=== PATIENT | female | born 1980 | race African-American/Black ===

== ENCOUNTER 2016-07-20 05:08 | Inpatient (IN) | payer OTHER ==
[~2016-07-20] VITALS: Ht 152.4 cm; Wt 76.2 kg
[~2016-07-20 05:08] MED LIST: FLEXERIL10 MG PO; HYDROCODONE/ACE1 TA1 PO; MOTRIN 600 MG600 MG PO; RA PRENATAL TA1 EACH PO; ZOFRAN ODT4 M1 PO
[2016-07-20 06:08] LABS: ABSOLUTE BASOPHIL COUNT 0.1 /CUMM (0.0-0.2); ABSOLUTE EOSINOPHIL COUNT 0.1 /CUMM (0.0-0.7); ABSOLUTE GRANULOCYTE CT 4.2 /CUMM (1.4-6.5); ABSOLUTE LYMPH COUNT 2.3 /CUMM (1.2-3.4); ABSOLUTE MONOCYTE COUNT 0.9 /CUMM (0.10-0.60); BASOPHIL % 1.5 % (0.0-2.0); EOSINOPHIL % 0.7 % (0-5); GRANULOCYTE % 56.1 % (42.2-75.2); HEMATOCRIT 39.1 % (37-47); MEAN CORPUSCULAR HGB 26.6 PG (27.0-31.0); MEAN CORPUSCULAR HGB CONC 32.2 G/DL (33.0-37.0); MEAN CORPUSCULAR VOLUME 82.4 FL (81.0-99.0); MEAN PLATELET VOLUME 11.4 FL (7.4-10.4); PLATELET COUNT 188 /CUMM (130-400); RED BLOOD CELL CT 4.75 /CUMM (4.20-5.40); WHITE BLOOD CELL COUNT 7.6 /CUMM (4.8-10.8)
[2016-07-20 06:20] VITALS: BP 136/81
--- NOTE | 2016-07-20 07:46 | History & Physical ---
General Information and HPI MD Statement: I have seen and personally examined DEMETRIUS SILVERIO and documented this H&P. The patient is a 35 year old female at 39[] weeks and 1[] days gestation who presented with a chief complaint of []. Previous section History of Present Illness: A3 6-year-old 3 para 1011 at 30 9/7 weeks gestation presents for repeat section. Patient has had adequate care. 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: 1 Last Menstrual Period: 10/31/2015 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: review section for CPD and oligo Medical History Neurological: NONE EENT: NONE Cardiovascular: NONE Respiratory: NONE Gastrointestinal: ABDOMINAL HERNIA Hepatic: NONE Renal: NONE Musculoskeletal: NONE Psychiatric: NONE Endocrine: NONE Blood Disorders: NONE Cancer(s): NONE 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: FALLOPIAN 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 Surgical History Pertinent Surgical History: , hernia repair-umbilical Past Family/Social History Psychosocial History Smoking Status: Never Smoked Review of Systems Review of Systems: -13 point review of systems as stated in the HPI Exam & Diagnostic Data Last 24 Hrs of Vital Signs/I&O Vital Signs Date Time Temp Pulse Resp B/P Pulse O2 O2 Flow FiO2 Ox Delivery Rate 07/20 0620 136/81 Intake & Output 07/20 0800 07/20 0000 07/19 1600 Intake Total Output Total Balance Patient 168 lb Weight Obstetric Exam Wgt Gained During : 22 Pelvimetry: Untested Dilation (cm): 0 Effacement (%): 0 Station: 0 Membranes: intact Fluid: unknown Fundal Height (cm): 37 Multiple Gestation? No Contractions: Non- Patient for Induction? No Labs Blood Type & Rh: Positiveo Antibody Screen: Negative Hct/Hgb & Platelets #1: Hct/Hgb & Platelets #2: Rubella: I VDRL #1: NR NR VDRL #2: NR HbsAg: NEG HIV #1: NEG HIV #2 NEG 1 Hr P Group B Strep: NEG Initial Ultrasound: NEG Anatomy Ultrasound: NL Genetic Testing: NEG Last 24 Hrs of Labs/[place]: Laboratory Tests 07/20/16 0520: CBC w Diff NO MAN DIFF REQ, RBC 4.75, MCV 82.4, MCH 26.6 L, RDW 16.0 H, MPV 11.4 H, Gran % 56.1, Lymphocytes % 30.4, Monocytes % 11.3 H, Eosinophils % 0.7 , Basophils % 1.5, Absolute Granulocytes 4.2, Absolute Lymphocytes 2.3, Absolute Monocytes 0.9 H, Absolute Eosinophils 0.1, Absolute Basophils 0.1, PUBS MCHC 32.2 L, Urinalysis LIGHT H, Urine Color YEL, Urine Clarity HAZY H, Urine pH 6.0, Ur Specific [place] 1.010, Urine Protein NEG, Urine Ketones NEG, Urine Nitrite NEG, Urine Bilirubin NEG, Urine Urobilinogen 0.2, Ur Leukocyte Esterase NEG, Ur Microscopic SEDIMENT EXAMINED, Urine RBC 1-3, Urine WBC 3-5 H, Ur Epithelial Cells FEW, Urine Bacteria MANY H, Urine Hemoglobin NEG, Urine Glucose NEG Microbiology 07/21 515 URINE ROUT: Urine Culture - COLB Assessment/Plan As Ranked By This Provider Problem List: 1. Core Measures/Miscellaneous Venous Thromboembolism VTE Risk Factors: / VTE Contraindications: No Contraindications VTE Diagnosis: No Beta Liz Is Beta Liz a Home Med? No Antibiotics Is Patient on Antibiotics? No
--- NOTE | 2016-07-20 08:50 | Operative Report ---
Operative/Inv Procedure Report Surgery Date: 07/20/16 Name of Procedure: Repeat low flap transverse section lysis of adhesions via Pfannenstiel skin incision Pre-Operative Diagnosis: Term previous section Post-Operative Diagnosis: Same Estimated Blood Loss: 500 Surgeon/Research Laboratory Technician: TOMAS VACA,REE Alfred and Dr. River Mcdonald [facility] Anesthesia: block Operative/Procedure Note Note: Patient was taken the operating room placed supine position after adequate skin testing for spinal anesthesia the abdomen was prepped and draped so fashion through an old Pfannenstiel skin incision skin was cut was carried down to rectus fascia which was cut in curvilinear fashion I direction using curved males peritoneal cavity was entered high into the abdomen dissected bluntly low blade the [place] was placed and lower and incision the visceral peritoneum of the uterus was dissected anteriorly to develop a bladder flap in the lower uterine segment uterus is nicked entered with the back of knife dissected bluntly as well as sharply at this point the infant was delivered over the abdominal wall 2 cords were noted around the baby's neck and the were reduced clamped cut and the was handed to pediatricians waiting delivering to aid in resuscitation placenta was delivered manually noted to be intact was wiped clean with 2 at dry laps to ensure was free of adherent membranes intravenous Pitocin and intramyometrial Pitocin and Methergine were used for uterine contractility hemostasis was apparent at this point running locking suture uterus was closed running locking suture of 0 imbricated with running locking suture of 0 intravenous [id number] were used for hemostasis uses turned to abdominal cavity irrigated close amounts warm saline times to found to be hemostatic counts correct peritoneum was closed using 0 the fascia was reapproximated to continue sutures #1 Bovie coagulation subcutaneous tissue was performed skin was reapproximated jaylene at the end the case counts correct the urine was clear mother and was transported to the recovery room awake and alert
[2016-07-21 08:52] LABS: ABSOLUTE EOSINOPHIL COUNT 0.1 /CUMM (0.0-0.7); WHITE BLOOD CELL COUNT 7.4 /CUMM (4.8-10.8)
[2016-07-21 09:16] LABS: ABSOLUTE BASOPHIL COUNT 0 /CUMM (0.0-0.2); ABSOLUTE GRANULOCYTE CT 4.9 /CUMM (1.4-6.5); ABSOLUTE LYMPH COUNT 1.5 /CUMM (1.2-3.4); ABSOLUTE MONOCYTE COUNT 0.9 /CUMM (0.10-0.60); BASOPHIL % 0.4 % (0.0-2.0); EOSINOPHIL % 1.2 % (0-5); GRANULOCYTE % 66.6 % (42.2-75.2); MEAN CORPUSCULAR HGB 28.2 PG (27.0-31.0); MEAN CORPUSCULAR HGB CONC 33.3 G/DL (33.0-37.0); MEAN CORPUSCULAR VOLUME 84.7 FL (81.0-99.0); PLATELET COUNT 135 /CUMM (130-400); RED BLOOD CELL CT 3.64 /CUMM (4.20-5.40)
[2016-07-21 09:21] LABS: HEMATOCRIT 30.8 % (37-47)
--- NOTE | 2016-07-21 09:52 | PN- Post Delivery/GYN ---
Subjective Subjective: POD1; NO C/O Review of Systems: NO FLATUS Objective Last 24 Hrs of Vital Signs/I&O VSS Physical Exam: INCISION C/D/I EXT NT Assessment/Plan Assessment/Plan POD1 STABLE D/C [place] ADVANCE DIET INCREASE ACTITVITY Problem List: 1.
--- NOTE | 2016-07-22 13:20 | PN- Post Delivery/GYN ---
Subjective Subjective: NO COMPLAINTS Objective Last 24 Hrs of Vital Signs/I&O [id number] REACTIVE Physical Exam: PE SHORT BF IN NAD ABD SOFT NT Incision Extremities negative edema negative Homans clean dry and intact Assessment/Plan Assessment/Plan [place] section Plan check CB C advanced diet continue care
[2016-07-23] MEDS ORDERED: PERCOCET 5-3251 EACH PO (00:27)
[2016-07-23] MEDS ORDERED: IBUPROFEN800 M1 PO (00:27)
--- NOTE | 2016-08-06 08:22 | Surgical Discharge Summary ---
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 Kyrgyz Review of Systems: Negative review of systems as stated in the [facility] Hospital Course Course Attending Physician: REE MARIN MD Primary Care Physician: SILVIA JO MD Hospital Course: She was admitted for a repeat section she did well she tolerated the section she bonded well with her infant first postoperative day on the second postoperative day the patient had a bowel movement and on third postoperative day she was discharged home the following physical exam she's a pleasant white female HEENT anicteric lungs clear abdomen soft incision clean dry and intact with jaylene in place extremities negative edema negative Homans Allergies: Coded Allergies: NO KNOWN ALLERGIES (12/10/15) Disposition Summary Disposition Principal Diagnosis: Status post repeat section Additional Diagnosis: Anemia Discharge Disposition: home or self care Discharge Instructions General Discharge Information Code Status: Full Code Patient's Diet: R Patient's Activity: No pelvic no heavy lifting greater than 15 pounds for 6 weeks on driving for 2 weeks nothing in the vagina for 6 weeks Follow-Up Instructions/Appts: 2 weeks in my office on and 1 week for the return visit Medications at Discharge Discharge Medications: Stop taking the following medications: Ibuprofen (Motrin 600 MG Tab) 600 MG TAB ORAL EVERY 8 HOURS NEEDED as needed for PAIN Qty = 20 CYCLOBENZAPRINE HCL (Flexeril) 10 MG TAB ORAL EVERY 8 HOURS NEEDED as needed for SPASMS Qty = 10 HYDROCODONE/ACETAMINOPHEN (Hydrocodon-Acetaminophen 5-325) 1 TAB TAB ORAL EVERY 8 HOURS NEEDED as needed for BREAK THROUGH PAIN Qty = 10 Ondansetron (Zofran Odt) 4 MG TAB.RAPDIS ORAL EVERY SIX HOURS as needed for NAUSEA Qty = 20 Continue taking these medications: Vit/Iron Fumarate/FA (Ra Tablet) 1 EACH TABLET 1 Tablet ORAL DAILY Qty = 30 Start taking the following new medications: Ibuprofen (Ibuprofen) 800 MG TABLET 800 Milligram ORAL EVERY SIX HOURS NEEDED as needed for UTERINE CRAMPING Qty = 30 No Refills Comments: Last Taken:07/23/16 Time:612 Oxycodone HCl/Acetaminophen (Percocet 5-325 MG Tablet) 5 MG-325 MG TABLET 1 Tablet ORAL EVERY 4 HOURS NEEDED as needed for PAIN SCALE 4-6 (MODERATE ) Qty = 30 No Refills Comments: Last Taken:07/23/16 Time:612
== END 2016-07-23 11:00 | DRG 540 ==
LOC: GNO 05:08
PROVIDERS: ADMIT Specialist
PROC: 10D00Z1 Extraction of Products of Conception, Low, Open Approach (ICD-10-PCS; principal; 2016-07-20)
DX: O34.211 Maternal care for low transverse scar from previous cesarean delivery (principal); N85.8 Other specified noninflammatory disorders of uterus; Z3A.39 39 weeks gestation of pregnancy; Z37.0 Single live birth
CPT/HCPCS: GNOS; 36415; 81001; 87086; 88307; J0690; J1650; J1885; J7120